=== PATIENT | female | born 1980 | race Caucasian/White ===

== ENCOUNTER 2017-09-30 11:39 | Emergency (ER) | payer SELFPAY ==
[2017-09-30 12:46] LABS: ADD MAN DIFF? NO
[2017-09-30] MEDS: KETOROLAC 30 MG/ML INJ. IV (12:49)
[2017-09-30 12:50] LABS: BASO # 0.1 x10^3/uL (0.0-0.2); BASO % 1 % (0-3); EOS # 0.2 x10^3/uL (0.0-0.7); EOS % 3 % (0-3); HEMATOCRIT 30.3 % (36.0-47.0); HEMOGLOBIN 10.3 g/dL (12.0-15.5); LYMPH % 28 % (24-48); MEAN CORPUSCULAR HEMOGLOBIN 29 pg (25-35); MEAN CORPUSCULAR HGB CONC 34 g/dL (31-37); MEAN CORPUSCULAR VOLUME 84 fL (79-100); MONO # 0.7 x10^3/uL (0.0-1.1); MONO % 9 % (0-9); NEUT # 4.4 x10^3uL (1.8-7.7); NEUT % 60 % (31-73); PLATELET COUNT 362 x10^3/uL (140-400); RED CELL DISTRIBUTION WIDTH 14.3 % (11.5-14.5); WHITE BLOOD COUNT 7.3 x10^3/uL (4.0-11.0)
[2017-09-30 13:18] LABS: ANION GAP 8 (6-14); BLOOD UREA NITROGEN 10 mg/dL (7-20); BUN/CREATININE RATIO 11 (6-20); CALCIUM 8.7 mg/dL (8.5-10.1); CARBON DIOXIDE 27 mmol/L (21-32); CHLORIDE 105 mmol/L (98-107); CREATININE 0.9 mg/dL (0.6-1.0); GFR 70.5; GLUCOSE 102 mg/dL (70-99); POTASSIUM 3.8 mmol/L (3.5-5.1); SODIUM 140 mmol/L (136-145)
[2017-09-30 13:23] LABS: NEG OBC SER NEG; POS OBC SER POS; PREG TEST PT QUAL NEGATIVE (NEG)
[2017-09-30 13:27] LABS: ALBUMIN 3.7 g/dL (3.4-5.0); ALK PHOS 68 U/L (46-116); ALT (SGPT) 41 U/L (14-59); AST (SGOT) 22 U/L (15-37); LIPASE 169 U/L (73-393); TOTAL BILIRUBIN 0.4 mg/dL (0.2-1.0); TOTAL PROTEIN 7.5 g/dL (6.4-8.2)
[2017-09-30 13:47] LABS: BILIRUBIN,URINE NEGATIVE (NEG); GLUCOSE,URINE NEGATIVE (NEG); NITRITE,URINE NEGATIVE (NEG); PROTEIN,URINE >=300 mg/dL (NEG-TRACE); UROBILINOGEN,URINE 0.2 mg/dL (0.2 mg/dL)
[2017-09-30 13:51] LABS: CLARITY,URINE CLOUDY; COLOR,URINE RED
[2017-09-30 13:57] LABS: BACTERIA,URINE 0 /HPF (0-FEW); RBC,URINE TNTC /HPF (0-2); SQUAMOUS EPITHELIAL CELL,UR MOD /LPF
[2017-10-01 14:25] LABS: CHLAMYDIA PROBE Negative (Negative); GC PROBE Negative (Negative)
== END 2017-09-30 15:19 | disposition home or self-care (01) ==
LOC: ER 11:39
DX: N83.202 Unspecified ovarian cyst, left side (principal); N93.8 Other specified abnormal uterine and vaginal bleeding; M19.90 Unspecified osteoarthritis, unspecified site
CPT/HCPCS: 36415; 76830; 76856; 80053; 81001; 83690; 84703; 85025; 87491; 87591; 96374; 99285-25; J1885; Q0111

== ENCOUNTER 2017-11-21 08:01 | Observation (INO) | payer BC ==
[2017-11-21] VITALS (7 sets, daily range): BP systolic 118–129; BP diastolic 67–78
[~2017-11-21] VITALS: Ht 152.4 cm; Wt 82.6 kg
[~2017-11-21 08:01] MED LIST: BUPIVACAINE-EPI 0.25%-1:200000 50 ML VIAL. ONE; ESTROGENS, CONJ VAGINAL CREAM 30GM TUBE. ONE; HYDROmorphone 2 MG/ML VIAL IV PRN; IBUP-1060 PO; INSU100V31 SQ; LIDOCAINE 1% PF 2 ML VIAL. ID PRN; METO10TA81 PO; MORPHINE SULFATE 2 MG/ML VIAL. IV PRN; NORG1TAB6 PO; ONDA4TAB7 PO; ONDANSETRON PF 4 MG/2 ML VIAL. IV PRN; PROCHLORPERAZINE 10 MG/2 ML VIAL. IV PRN; SURGICEL HEMOSTAT 4X8 EACH. ONE; [UNRECOGNIZED DRUG - REMARK]; fentaNYL PF VIAL 100 MCG/2 ML VIAL IV PRN
[2017-11-21 08:22] LABS: U PREG PATIENT NEGATIVE (NEG)
[2017-11-21] MEDS: IV RINGERS,LACTATED 1000ML 1,000 ML IV SCH ×2 (08:36→12:22)
[2017-11-21 08:59] LABS: HEMATOCRIT 27.1 % (36.0-47.0); HEMOGLOBIN 8.6 g/dL (12.0-15.5); LYMPH % 36 % (24-48); MEAN CORPUSCULAR HEMOGLOBIN 23 pg (25-35); MEAN CORPUSCULAR HGB CONC 32 g/dL (31-37); MEAN CORPUSCULAR VOLUME 73 fL (79-100); MONO % 8 % (0-9); NEUT % 50 % (31-73); PLATELET COUNT 398 x10^3/uL (140-400); RED BLOOD COUNT 3.73 x10^6/uL (3.50-5.40); RED CELL DISTRIBUTION WIDTH 21.1 % (11.5-14.5); WHITE BLOOD COUNT 6.6 x10^3/uL (4.0-11.0)
[2017-11-21 09:00] LABS: BASO # 0.1 x10^3/uL (0.0-0.2); BASO % 2 % (0-3); EOS # 0.3 x10^3/uL (0.0-0.7); EOS % 4 % (0-3); LYMPH # 2.4 x10^3/uL (1.0-4.8); MONO # 0.5 x10^3/uL (0.0-1.1); NEUT # 3.3 x10^3uL (1.8-7.7)
[2017-11-21] MEDS ORDERED: LIDOCAINE 1%/EPI 1:100,000 20 ML VIAL. INJ ONE (09:00)
[2017-11-21] MEDS ORDERED: INDIGOTINDISULFONATE SODIUM 40 MG/5 ML AMPUL. IV ONE (09:00)
[2017-11-21] MEDS ORDERED: DEXAMETHASONE SOD PHOS 20 MG/5 ML VIAL. ONE (09:36)
[2017-11-21] MEDS ORDERED: FAMOTIDINE 20 MG/2 ML VIAL ONE (09:36)
[2017-11-21] MEDS ORDERED: LIDOCAINE 2% PF Vial for OR 5 ML VIAL. ONE (09:36)
[2017-11-21] MEDS ORDERED: ONDANSETRON PF 4 MG/2 ML VIAL. ONE (09:36)
[2017-11-21] MEDS ORDERED: PROPOFOL 20 ML IV ONE (09:36)
[2017-11-21] MEDS ORDERED: fentaNYL PF VIAL 100 MCG/2 ML VIAL ONE (09:40)
[2017-11-21] MEDS ORDERED: MIDAZOLAM HCL/PF 2 MG/2 ML VIAL. ONE (09:40)
[2017-11-21] MEDS ORDERED: ROCURONIUM 50 MG/5 ML VIAL. ONE (09:41)
[2017-11-21] MEDS ORDERED: KETOROLAC 30 MG/ML INJ FOR OR. INJ ONE (09:43)
[2017-11-21] MEDS ORDERED: GLYCOPYRROLATE 1 MG/5 ML VIAL. ONE (10:47)
[2017-11-21] MEDS ORDERED: ePHEDrine PF IN SALINE 50 MG/5 ML DISP.SYRIN IV ONE (10:48)
[2017-11-21] MEDS ORDERED: SEVOFLURANE 61 TO 120 MINUTES. IH ONE (11:25)
[2017-11-21] MEDS ORDERED: SEVOFLURANE > 120 MINUTES. IH ONE (11:25)
[2017-11-21] MEDS ORDERED: NEOSTIGMINE METHYLSULFATE 5 MG/5 ML SYRINGE. ONE (11:29)
--- NOTE | 2017-11-21 11:35 | PDOC ---
BRIEF OPERATIVE NOTE Date: Nov 21, 2017 Pre-Op Diagnosis 1. AUB 2. Dysmenorrhea 3. Genetic Susceptibility Breast Cancer Post-Op Diagnosis Same Procedure Performed TLH & LSO Surgeon Dr. Reynaga Manager Cargo Neelima Anesthesia Type: General Blood Loss 25 ml Specimens Obtained uterus, cervix, Left fallopian tube and ANUPAM Findings enlarged uterus; nml Left fallopian tube and ANUPAM; ROV and Right fallopian tube removed from previous surgery Complications none Operative Note see dictation ANANDA REYNAGA Jr, MD Nov 21, 2017 11:35
[2017-11-21] MEDS ORDERED: DEXTROSE 50% 25 GM / 50ML DISP.SYRIN. IV PRN (11:45)
[2017-11-21] MEDS ORDERED: SIMETHICONE 80 MG TAB.CHEW PO PRN (11:45)
[2017-11-21] MEDS ORDERED: PROCHLORPERAZINE 10 MG/2 ML VIAL. IV PRN (11:45)
[2017-11-21] MEDS ORDERED: CALCIUM CARBONATE 500 MG TAB.CHEW PO PRN (11:45)
[2017-11-21] MEDS ORDERED: 0.9 % SODIUM CHLORIDE 10 ML DISP.SYRIN. IV PRN (11:45)
[2017-11-21] MEDS ORDERED: diphenhydrAMINE 50 MG/ML VIAL IV PRN (11:45)
[2017-11-21] MEDS ORDERED: ONDANSETRON PF 4 MG/2 ML VIAL. IV PRN (11:45)
[2017-11-21] MEDS ORDERED: ZOLPIDEM 5 MG TABLET. PO PRN (11:45)
[2017-11-21] MEDS ORDERED: KETOROLAC 30 MG/ML VIAL. IV PRN (11:45)
[2017-11-21] MEDS ORDERED: diphenhydrAMINE HCL 25 MG CAPSULE PO PRN (11:45)
--- NOTE | 2017-11-21 12:02 | OP ---
DATE OF SURGERY: PREOPERATIVE DIAGNOSES: 1. Abnormal uterine bleeding. 2. Dysmenorrhea. 3. Genetic susceptibility to breast cancer. POSTOPERATIVE DIAGNOSES: 1. Abnormal uterine bleeding. 2. Dysmenorrhea. 3. Genetic susceptibility to breast cancer. PROCEDURE: TLH and LSO. SURGEON: Ananda Reynaga MD ENVELOPE MACHINE ADJUSTER: first antonio Ortez. ANESTHESIA: GETA. ESTIMATED BLOOD LOSS: 25 mL. COMPLICATIONS: None. FINDINGS: Enlarged uterus, normal left fallopian tube and left ovary. Right ovary and right fallopian tube was removed from previous surgery. SUMMARY: A 37-year-old female with prolonged dysmenorrhea, abnormal uterine bleeding. The patient was also elevated risk for breast cancer due to positive breast cancer, genetic screening. The patient was counseled on the risks, benefits and expectations of TLH and LSO and voiced a clear understanding to proceed. DESCRIPTION OF PROCEDURE: The patient was taken to the surgery suite and placed in dorsal lithotomy position. She was prepped with Betadine solution for vaginal prep and ChloraPrep for abdominal prep. After adequate anesthesia, weighted speculum and curved Josefina placed vaginally. Anterior lip of the cervix was grasped with single tooth tenaculum. The CRISTI uterine manipulator was then placed. Single tooth tenaculum, weighted speculum and curved [place] were removed. Attention was now placed on the abdomen. Small transverse skin incision was made just below the umbilicus with the scalpel. The Veress needle was then placed through the infraumbilical incision site. The abdomen was allowed to insufflate up to 1-1/2 liters CO2 gas. The Veress needle was then removed. The 8 mm camera port was placed and camera was then positioned. The uterus was enlarged. Left fallopian tube and ovary appeared normal. The right fallopian tube and right ovary had been removed from previous surgery. There was no evidence of endometriosis. Incision was made in the left and right lower quadrant, in which 8-mm trocar was placed. An accessory port was placed in the left upper quadrant, in which a 5-mm port was placed. The robot was then docked in normal fashion. I then proceeded to the console. With the aid of the vessel sealer and bipolar, the right round ligament was coagulated and dissected. The right broad ligament was coagulated and dissected down to and including the right uterine artery. Bladder flap was partially created using vessel sealer and blunt dissection. The left round ligament was then coagulated and dissected. The left infundibulopelvic ligament was coagulated and dissected. Left broad ligament was coagulated and dissected down to and including the left uterine artery. The remainder of the bladder flap was created using blunt dissection along with the vessel sealer. Spatula was utilized to circumscribe the cervix at the level of the vaginal ring. The cervix, uterus, left fallopian tube and left ovary were then removed in their entirety. The vaginal cuff was reapproximated using V-Loc suture in a running fashion. Suction irrigation was utilized to verify good hemostasis. The robot was undocked. The trocars removed under direct visualization. The abdomen was allowed to deflate as much as possible along with mechanical manipulation. The four skin incisions were reapproximated using 4-0 Vicryl suture in subcuticular manner. A 0.25% Marcaine with epinephrine was injected at each incision site. A Premarin soaked vaginal packing was placed. The patient tolerated the procedure well, was sent to recovery room in stable condition. Sponge and needle count correct x 3. ANANDA REYNAGA MD DR: TARYN/stanislaw JOB#: [id number] / [id number]
[2017-11-21 12:28] LABS: ANISOCYTOSIS MOD; HYPOCHROMIA MOD; PLT ESTIMATE ADEQUATE (ADEQUATE); POLYCHROMASIA SLIGHT
[2017-11-21 12:29] LABS: MICROCYTOSIS SLIGHT
[2017-11-21] MEDS: GABAPENTIN 300 MG CAPSULE. PO SCH ×2 (14:58→21:34)
[2017-11-21] MEDS: oxyCODONE/APAP 5/325 1 TAB TABLET PO PRN (21:34)
[2017-11-22 00:57] VITALS: BP 94/57
[2017-11-22 04:43] LABS: BASO % 0 % (0-3); EOS % 0 % (0-3); HEMATOCRIT 24.7 % (36.0-47.0); LYMPH # 2.4 x10^3/uL (1.0-4.8); LYMPH % 22 % (24-48); MEAN CORPUSCULAR HEMOGLOBIN 23 pg (25-35); MEAN CORPUSCULAR HGB CONC 32 g/dL (31-37); MEAN CORPUSCULAR VOLUME 73 fL (79-100); MONO # 0.6 x10^3/uL (0.0-1.1); MONO % 6 % (0-9); NEUT # 7.7 x10^3uL (1.8-7.7); NEUT % 72 % (31-73); PLATELET COUNT 354 x10^3/uL (140-400); RED CELL DISTRIBUTION WIDTH 20.2 % (11.5-14.5); WHITE BLOOD COUNT 10.7 x10^3/uL (4.0-11.0)
[2017-11-22] MEDS: oxyCODONE/APAP 5/325 1 TAB TABLET PO PRN (06:25)
[2017-11-22] MEDS: GABAPENTIN 300 MG CAPSULE. PO SCH (06:25)
[2017-11-22 06:46] VITALS: BP 126/78
--- NOTE | 2017-11-22 08:11 | PDOC ---
SURGICAL PROGRESS NOTE Subjective Pt. feeling well. No complaints. Vital Signs Vital Signs Date Time Temp Pulse Resp B/P (MAP) Pulse Ox O2 Delivery O2 Flow Rate FiO2 11/22/17 06:46 97.9 95 18 126/78 (94) 95 Room Air 97.9 11/21/17 12:45 2 I&O Intake and Output 11/22/17 07:00 Intake Total 3300 ml Output Total 2570 ml Balance 730 ml Intake Oral 2250 ml IV Total 1050 ml Output Urine Total 2550 ml Estimated Blood Loss 20 ml General: Alert, Oriented X3, Cooperative HEENT: Atraumatic Lungs: Clear to auscultation Heart: Regular rate Abdomen: Normal bowel sounds, Soft, No tenderness, No masses Psych/Mental Status: Mental status NL Labs Laboratory Tests Test 11/21/17 08:15 11/21/17 08:25 11/22/17 04:05 Urine Test Negative (NEG) White Blood Count 6.6 x10^3/uL (4.0-11.0) 10.7 x10^3/uL (4.0-11.0) Red Blood Count 3.73 x10^6/uL (3.50-5.40) 3.40 x10^6/uL (3.50-5.40) Hemoglobin 8.6 g/dL (12.0-15.5) 8.0 g/dL (12.0-15.5) Hematocrit 27.1 % (36.0-47.0) 24.7 % (36.0-47.0) Mean Corpuscular Volume 73 fL (79-100) 73 fL (79-100) Mean Corpuscular Hemoglobin 23 pg (25-35) 23 pg (25-35) Mean Corpuscular Hemoglobin Concent 32 g/dL (31-37) 32 g/dL (31-37) Red Cell Distribution Width 21.1 % (11.5-14.5) 20.2 % (11.5-14.5) Platelet Count 398 x10^3/uL (140-400) 354 x10^3/uL (140-400) Neutrophils (%) (Auto) 50 % (31-73) 72 % (31-73) Lymphocytes (%) (Auto) 36 % (24-48) 22 % (24-48) Monocytes (%) (Auto) 8 % (0-9) 6 % (0-9) Eosinophils (%) (Auto) 4 % (0-3) 0 % (0-3) Basophils (%) (Auto) 2 % (0-3) 0 % (0-3) Neutrophils # (Auto) 3.3 x10^3uL (1.8-7.7) 7.7 x10^3uL (1.8-7.7) Lymphocytes # (Auto) 2.4 x10^3/uL (1.0-4.8) 2.4 x10^3/uL (1.0-4.8) Monocytes # (Auto) 0.5 x10^3/uL (0.0-1.1) 0.6 x10^3/uL (0.0-1.1) Eosinophils # (Auto) 0.3 x10^3/uL (0.0-0.7) 0.0 x10^3/uL (0.0-0.7) Basophils # (Auto) 0.1 x10^3/uL (0.0-0.2) 0.0 x10^3/uL (0.0-0.2) Platelet Estimate Adequate (ADEQUATE) Large Platelets Occ Polychromasia Slight Hypochromasia Mod Anisocytosis Mod Microcytosis Slight Laboratory Tests Test 11/21/17 08:15 11/21/17 08:25 11/22/17 04:05 Urine Test Negative (NEG) White Blood Count 6.6 x10^3/uL (4.0-11.0) 10.7 x10^3/uL (4.0-11.0) Red Blood Count 3.73 x10^6/uL (3.50-5.40) 3.40 x10^6/uL (3.50-5.40) Hemoglobin 8.6 g/dL (12.0-15.5) 8.0 g/dL (12.0-15.5) Hematocrit 27.1 % (36.0-47.0) 24.7 % (36.0-47.0) Mean Corpuscular Volume 73 fL (79-100) 73 fL (79-100) Mean Corpuscular Hemoglobin 23 pg (25-35) 23 pg (25-35) Mean Corpuscular Hemoglobin Concent 32 g/dL (31-37) 32 g/dL (31-37) Red Cell Distribution Width 21.1 % (11.5-14.5) 20.2 % (11.5-14.5) Platelet Count 398 x10^3/uL (140-400) 354 x10^3/uL (140-400) Neutrophils (%) (Auto) 50 % (31-73) 72 % (31-73) Lymphocytes (%) (Auto) 36 % (24-48) 22 % (24-48) Monocytes (%) (Auto) 8 % (0-9) 6 % (0-9) Eosinophils (%) (Auto) 4 % (0-3) 0 % (0-3) Basophils (%) (Auto) 2 % (0-3) 0 % (0-3) Neutrophils # (Auto) 3.3 x10^3uL (1.8-7.7) 7.7 x10^3uL (1.8-7.7) Lymphocytes # (Auto) 2.4 x10^3/uL (1.0-4.8) 2.4 x10^3/uL (1.0-4.8) Monocytes # (Auto) 0.5 x10^3/uL (0.0-1.1) 0.6 x10^3/uL (0.0-1.1) Eosinophils # (Auto) 0.3 x10^3/uL (0.0-0.7) 0.0 x10^3/uL (0.0-0.7) Basophils # (Auto) 0.1 x10^3/uL (0.0-0.2) 0.0 x10^3/uL (0.0-0.2) Platelet Estimate Adequate (ADEQUATE) Large Platelets Occ Polychromasia Slight Hypochromasia Mod Anisocytosis Mod Microcytosis Slight Assessment/Plan POD#1 s/p TLH & LSO P: D/c home. ANANDA FRANKLIN Jr, MD Nov 22, 2017 08:11
--- NOTE | 2017-11-22 08:13 | DISCH ---
DISCHARGE INSTRUCTIONS Condition on Discharge Condition on Discharge: Stable Activity After Discharge Activity Instructions for Disc: Activity as tolerated Lifting Instructions after Dis: No heavy lifting Driving Instructions after Dis: Do not drive today Diet after Discharge Diet after Discharge: Regular Contacting the DRAvni after DC Call your doctor for: Concerns you may have Follow-Up Follow up with: Dr. Reynaga in 2 weeks. ANANDA REYNAGA Jr, MD Nov 22, 2017 08:12
[2017-11-22] MEDS ORDERED: DOCU-109 PO (08:16)
[2017-11-22] MEDS ORDERED: OXYC1TAB7 PO (08:16)
[2017-11-22] MEDS ORDERED: IBUP-1060 PO (08:16)
[2017-11-22 09:13] VITALS: BP 120/67
--- NOTE | 2017-11-25 18:06 | PATHOLOGY ---
[facility] Accession Number: [id number] . 01 Material submitted: . CERVIX, UTERUS, LEFT TUBE AND OVARY . 01 Clinical history: . Pelvic pain . 02 Diagnosis: Uterus and attached left fallopian tube and ovary, robotic hysterectomy with left salpingo-oophorectomy: - Mild chronic cervicitis with focal squamous metaplasia. - Weakly proliferative endometrium with focal glandular/stromal breakdown. - Adenomyosis, uterine corpus, subbasal, focal. 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 - Uterine serosal adhesions. - Cystic [place] rests and focal serosal endosalpingiosis of left fallopian tube. - Hemorrhagic luteinized cyst and cystic follicles of left ovary. LBQ/11/25/2017 . 02 Comment: There is no evidence of malignancy. (JPM/db; 11/25/17) . 02 Electronically signed: . Jonah Wilkinson MD, Pathologist NPI- [id number] . 01 Gross description: . The specimen is received in formalin, labeled "Vianca Mosqueda, cervix, uterus, left tube and ovary" and consists of a 86 g uterus with attached cervix measuring 8.5 x 5.3 x 4.3 cm with attached left adnexa (12 g). The uterine serosa is pink-mitchell and encased with hemorrhagic adhesions. The gaping, 1.4 cm cervical os is surrounded by pink-mitchell and glistening ectocervical mucosa. The specimen is bivalved to reveal a grooved endocervical canal measuring 2.2 cm. The endometrial cavity is triangular measuring 4.5 cm in length and 3.1 cm in diameter. The endometrium is pink-mitchell and attenuated measuring less than 0.1 cm. Further serial sectioning reveals a pink-mitchell and trabeculated myometrium measuring up to 2.3 cm with an intramural nodule in the anterior aspect measuring 1.0 x 0.7 cm. The nodule cut surfaces are homogeneous without hemorrhage or necrosis. No additional nodules or mass lesions are identified. . The left adnexa consists of a fimbriated fallopian tube (6.4 cm in length and ranging from 0.5 cm to 0.8 cm in diameter) attached to a 7 g ovary (3.3 x 2.4 x 1.6 cm). The fallopian tube is pink-purple and ragged with multiple paratubal cysts ranging from 0.1-0.4 cm. Sectioning reveals no gross lesions. 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 Sectioning reveals multiple corpora albicantia, degenerating lutea, and subcortical cysts ranging from 0.3 cm to 0.7 cm. Wool Puller sections are submitted as follows: . A1: Anterior cervix A2: Posterior cervix A3: Anterior endomyometrium A4: Posterior endomyometrium A5: Nodule A6: Left fallopian tube A7: Left ovary (SDY; 11/21/2017) SYU/SYU . 02 Pathologist provided ICD-10: N72, N80.0, D25.1, N83.292 . 02 CPT . 635028 Performed at: 01 [facility] [address], [place] [id number] MD Ford Cast MD Phone: [phone] Performed at: 02 [facility] [address] [place], [place] [id number] MD Jonah Wilkinson MD Phone: [phone]
== END 2017-11-22 10:19 | disposition home or self-care (01) ==
LOC: SURG 08:01 → 3 NORTH 11:35
PROVIDERS: ADMIT Obstetrics & Gynecology; ATTEND Obstetrics & Gynecology
DX: D25.1 Intramural leiomyoma of uterus (principal); N85.2 Hypertrophy of uterus; N93.9 Abnormal uterine and vaginal bleeding, unspecified; N94.6 Dysmenorrhea, unspecified; N72 Inflammatory disease of cervix uteri
CPT/HCPCS: 36415; 58570; 81025; 85025; 86850; 86900; 86901; 96374; 96375; G0378; G0379; J0690; J1100; J1885; J2001; J2250; J2405; J2704; J2710; J3010; J3490; J7030; J7120; S0028; 88307; A7015